=== PATIENT | female | born 1950 | race Caucasian/White ===

== ENCOUNTER → 2019-07-06 | Outpatient (CLI) | payer OTHER | END | disposition home or self-care (01) | LOC: OIH 13:00 | PROVIDERS: ATTEND Internal Medicine Cardiovascular Disease | DX: Z13.6 Encounter for screening for cardiovascular disorders (principal); I70.90 Unspecified atherosclerosis | CPT/HCPCS: 75571 ==

== ENCOUNTER → 2019-07-27 | Outpatient (CLI) | payer MEDICARE | END | disposition home or self-care (01) | LOC: SHCH 08:52 → EDUNIT# 09:00 | PROVIDERS: ATTEND Internal Medicine Cardiovascular Disease | DX: I08.0 Rheumatic disorders of both mitral and aortic valves (principal); R01.1 Cardiac murmur, unspecified | CPT/HCPCS: 93306 ==

== ENCOUNTER → 2019-07-30 | Outpatient (CLI) | payer MEDICARE | END | disposition home or self-care (01) | LOC: SHCH 09:12 → EDUNIT# 09:30 | PROVIDERS: ATTEND Internal Medicine Cardiovascular Disease | DX: R60.9 Edema, unspecified (principal) | CPT/HCPCS: 93970 ==

== ENCOUNTER 2019-08-27 05:30 | Day surgery (SDC) | payer MEDICARE ==
[2019-08-25 08:33] LABS: BASOPHILS % (AUTO) 0.4 % (0.0-5.0); EOSINOPHILS % (AUTO) 2.4 % (0.0-8.0); HEMATOCRIT 37.6 % (36-48); LYMPHOCYTES % (AUTO) 17.1 % (21.0-51.0); MEAN CORPUSCULAR HEMOGLOBIN 33.2 pg (27.0-33.0); MEAN CORPUSCULAR HGB CONC 33.5 g/dL (32.0-36.0); MEAN CORPUSCULAR VOLUME 99.2 fL (79-99); MONOCYTES % (AUTO) 8.8 % (3.0-13.0); PLATELET COUNT (AUTO) 261 K/uL (130-400); RED BLOOD CELL COUNT(AUTO) 3.79 MIL/uL (4.00-5.50); RED CELL DISTRIBUTION WIDTH 12.6 % (11.0-15.5); WHITE BLOOD COUNT (AUTO) 7.4 K/uL (4.8-10.8)
[2019-08-25 08:35] LABS: APPEARANCE,URINE CLEAR (CLEAR); BILIRUBIN,URINE NEGATIVE (NEGATIVE); COLOR,URINE YELLOW (YELLOW); GLUCOSE, URINE (UA) >=1000 mg/dL (NEGATIVE); KETONES,URINE NEGATIVE (NEGATIVE); LEUKOCYTE ESTERASE ,URINE NEGATIVE (NEGATIVE); NITRATE,URINE NEGATIVE (NEGATIVE); OCCULT BLOOD,URINE NEGATIVE (NEGATIVE); PH,URINE 5.5 (5.0-8.0); PROTEIN,URINE NEGATIVE (NEGATIVE); UROBILINOGEN,URINE 0.2 mg/dL (0.2-1.0)
[2019-08-25 08:41] LABS: BACTERIA,URINE Rare /HPF (None Seen); RBC,URINE 0-1 /HPF (0-1); SQUAMOUS EPITHELIAL CELL,UR Few /HPF (0-2)
[2019-08-25 08:43] LABS: INR 0.95 (0.85-1.15); PARTIAL THROMBOPLASTIN TIME 27.8 SEC (26.3-35.5)
[2019-08-25 08:52] LABS: CREATININE 1.1 mg/dL (0.5-1.5); POTASSIUM 4.1 mmol/L (3.5-5.1)
[2019-08-25 08:53] VITALS: BP 139/67
[2019-08-27] VITALS (11 sets, daily range): BP systolic 99–133; BP diastolic 45–72
[~2019-08-27] VITALS: Ht 162.6 cm; Wt 103.9 kg
[~2019-08-27 05:30] MED LIST: AEC81 PO; ATOR20TA65 PO; BUPR150T8 PO; CETI10TA57 PO; CITA10TA7 PO; EMPA25TA PO; PANT40TA25 PO; lisinopril PO
[2019-08-27] MEDS ORDERED: SODIUM CHLORIDE 0.9% 1000ML 1,000 ML IV ONE (06:17)
[2019-08-27] MEDS ORDERED: SODIUM BICARB 50MEQ 50ML VIAL ONE (07:11)
[2019-08-27] MEDS ORDERED: IOHEXOL-350 50ML VIAL IV ONE (07:12)
[2019-08-27] MEDS ORDERED: HEPARIN SODIUM 1000UNIT/ML 10ML VIAL ONE (07:12)
[2019-08-27] MEDS ORDERED: NITROGLYCERIN 2 MG/VIAL VIAL IV ONE (07:12)
[2019-08-27] MEDS ORDERED: LIDOCAINE HCL 2% 20ML ONE (07:13)
[2019-08-27] MEDS ORDERED: NICARDIPINE HCL 25 MG/10 ML ML IV ONE (07:34)
[2019-08-27] MEDS ORDERED: MEPERIDINE-PF 25 MG/ML SYG ONE ×2 (07:42→07:57)
[2019-08-27] MEDS ORDERED: MIDAZOLAM HCL 1 MG/ML 2ML VIAL ONE ×2 (07:43→07:58)
[2019-08-27] MEDS ORDERED: ADENOSINE 90MG/30ML VIAL IV ONE (08:14)
[2019-08-27] MEDS ORDERED: SODIUM CHLORIDE 0.9% 1000ML 1,000 ML IV SCH (08:42)
[2019-08-27] MEDS ORDERED: GLUCAGON 1MG KIT 1 MG ML IM PRN (08:45)
[2019-08-27] MEDS ORDERED: DEXTROSE 50%-WATER 50 ML DISP.SYRIN IV PRN (08:45)
--- NOTE | 2019-08-27 09:10 | NUR ---
PT CAME FROM [facility]IA[facility] BY BED, PT HAD A LHC TO RT. RADIAL, TR-BAND WITH 13ML INSERTED. SITE IS DRY AND INTACT. NO HEMATOMA, NO BLEEDING NO PAIN. RADIAL PULSES PRESENT BILATERALLY.
[2019-08-27] MEDS ORDERED: DiphenhydrAMINE HCL 50 MG/ML VIAL IV SCH (09:30)
[2019-08-27] MEDS ORDERED: DiphenhydrAMINE HCL 50 MG/ML VIAL ONE (09:34)
[2019-08-27] MEDS ORDERED: INSULIN HUMULIN R 100 UNIT/ML 3ML SQ SCH (11:30)
--- NOTE | 2019-08-27 11:30 | NUR ---
TR BAND REMOVED FROM RT. WRIST NO HEMATOMA, NO PAIN, NO BLEEDING, RADIAL PULSES PRESENT.
--- NOTE | 2019-08-27 11:55 | NUR ---
PT LEFT VIA WHEELCHAIR IN PVT CAR D/C INSTRUCTIONS GIVEN TO DAUGHTER, WITH F/U APPT. V/S STABLE NO COMPLICATIONS UPON D/C. SITE WAS DRY AND INTACT NO BLEEDING, NO HEMATOMA, NO PAIN WITH RADIALS PULSES INTACT.
== END 2019-08-27 11:55 | disposition home or self-care (01) ==
LOC: DAH 05:30
PROVIDERS: ATTEND Internal Medicine Cardiovascular Disease
DX: I25.118 Atherosclerotic heart disease of native coronary artery with other forms of angina pectoris (principal); I10 Essential (primary) hypertension; E11.9 Type 2 diabetes mellitus without complications; E66.9 Obesity, unspecified; Z88.1 Allergy status to other antibiotic agents; Z88.5 Allergy status to narcotic agent; Z88.8 Allergy status to other drugs, medicaments and biological substances; Z79.82 Long term (current) use of aspirin; Z79.899 Other long term (current) drug therapy; Z98.890 Other specified postprocedural states; Z98.51 Tubal ligation status; Z79.01 Long term (current) use of anticoagulants; Z68.39 Body mass index [BMI] 39.0-39.9, adult; Z82.49 Family history of ischemic heart disease and other diseases of the circulatory system
CPT/HCPCS: 36415; 71045; 80048; 81001; 82948 ×2; 85025; 85610; 85730; 93005; 93458; 93571; A4215; A4216; A4221; A4222; A4223 ×3; A4606; A4663; C1769 ×2; C1887; C1894; J0153; J1200; J1644 ×2; J2175 ×2; J2250 ×2; J3490 ×4; J7030; Q9965; Q9967; 99156; 99157

== ENCOUNTER → 2020-06-08 | Outpatient (CLI) | payer MEDICARE ==
[~2020-06-08] MED LIST changes: -PANT40TA25 PO; +PANT40TA54 PO
== END | disposition home or self-care (01) ==
LOC: RAH 11:26
PROVIDERS: ATTEND Family Medicine
DX: Z12.31 Encounter for screening mammogram for malignant neoplasm of breast (principal)
CPT/HCPCS: 77067